=== PATIENT | male | born 2000 | race Caucasian/White ===

== ENCOUNTER 2018-02-25 08:05 | Day surgery (SDC) ==
[2018-02-25 09:06] VITALS: TEMP 98
[2018-02-25] MEDS ORDERED: LIDOCAINE 1% 20 ML MDV ID STA (09:06)
[2018-02-25] MEDS ORDERED: LIDOCAINE 1%-EPI 1:100,000 10 ML (SURGERY) INJ ONE (09:50)
[2018-02-25 11:34] VITALS: BP 124/67
--- NOTE | 2018-02-27 12:46 | OP ---
DATE OF PROCEDURE: 02/25/18 INDICATIONS: 17 year old male was seen at the office initially, a patient of Dr. Corona, because of a vascular growth over the skin. The patient did tell me that it was small and he punctured it and it bleed profusely. He was seen by Dr. Corona and he was referred to me. I felt that the patient probably has a hemangioma and the growth has been rapid above the skin and appeared to be vascular. I did tell the patient that I remove it but I would like to remove it in surgery rather than the office. The patient was agreeable. The patient was advised about the possibility of infection as well as excessive scar formation. Further treatment will depend upon the results of the pathology. The patient did show good understanding. Nurse the present during the discussion. PREOPERATIVE DIAGNOSIS: Hemangioma right deltoid area, upper with possible pyogenic granuloma. POSTOPERATIVE DIAGNOSIS: Hemangioma right deltoid area, upper with possible pyogenic granuloma. OPERATION: The patient in left left lateral decubitus position was then prepped and draped for surgery. The area was then anesthetized with 1% Xylocaine. A transverse elliptical incision was made carried down into the subcutaneous tissue. The dissection was carried sharply under low magnification. About 2mm size bundle was left and the in course of the dissection started bleeding. This probably was the blood vessel feeder and it was then ligated with 4-0 Vicryl. It was transected above the ligature. No significant bleeding was noted and the area was irrigated profusely with Betadine followed by saline. The incision was approximated with 4-0 Vicryl and 4-0 Prolene. The patient tolerated the procedure and was instructed to see me in one week and there is any signs of infection, pain, drainage or bleeding then he should see me right away. [facility]ITAL[facility]
== END 2018-02-25 10:24 | disposition home or self-care (01) ==
LOC: SURG 08:05
PROVIDERS: ATTEND General Practice
DX: D18.01 Hemangioma of skin and subcutaneous tissue (principal)
CPT/HCPCS: 11402